=== PATIENT | male | born 1985 | race African-American/Black ===

== ENCOUNTER 2021-11-13 00:45 | Observation (INO) | payer OTHER ==
[2021-11-13] MEDS ORDERED: LACTATED RINGERS SOLUTION 1000 ML INFUS.BAG IV ONE (00:58)
[2021-11-13] MEDS ORDERED: morphine CARPU-JECT 2 MG/1 ML DISP.SYRIN IVPUSH ONE (00:58)
[2021-11-13] MEDS ORDERED: morphine SULFATE 4 MG/ML VIAL ONE (01:00)
[2021-11-13 02:09] LABS: BASO % 0.6 % (0-2.0); EOS % 1.6 % (0-4.5); HEMATOCRIT 40.9 % (35.4-49); HEMOGLOBIN 14.1 GM/dL (11.7-16.9); LYMPH % 26.3 % (8-40); MCH 29.6 pg (25.7-33.7); MCHC 34.5 g/dl (32.0-35.9); MEAN CELL VOLUME 85.8 fl (80-96); MEAN PLT VOLUME 8.7 fl (7.5-11.1); MONO % 15.4 % (3.8-10.2); NEUT % 56.1 % (42.8-82.8); PLATELET COUNT 213 10^3/uL (134-434); RBC 4.77 M/mm3 (4.00-5.60); RDW 13.6 % (11.9-15.9); WHITE BLOOD COUNT 6.8 K/mm3 (4.0-10.0)
[2021-11-13 02:26] LABS: ALBUMIN 3.7 g/dl (3.4-5.0); BLOOD UREA NITROGEN 12.4 mg/dL (7-18); CALCIUM 8.5 mg/dL (8.5-10.1)
[2021-11-13 02:31] LABS: BILIRUBIN,TOTAL 0.3 mg/dL (0.2-1); TOT PROT 7.3 g/dl (6.4-8.2)
[2021-11-13] MEDS ORDERED: ENOXAPARIN NA (PORCINE) 100 MG/1 ML DISP.SYRIN SQ ONE ×2 (03:00→03:20)
[2021-11-13] MEDS ORDERED: ENOXAPARIN NA (PORCINE) 100 MG/1 ML DISP.SYRIN SQ SCH ×2 (03:14→10:00)
[2021-11-13] MEDS ORDERED: T PO PRN (03:15)
[2021-11-13] MEDS ORDERED: ACETAMINOPHEN 1000 MG/100 ML BAG IVPB PRN (03:39)
[2021-11-13 03:41] LABS: INR 0.92 (0.83-1.09); PROTHROMBIN TIME (PATIENT) 10.6 SEC (9.7-13.0)
[2021-11-13 03:43] LABS: ACTIVATED PTT 30.8 SECONDS (25.2-36.5)
[2021-11-13 06:49] VITALS: BMI 28.0
[2021-11-13 10:21] VITALS: BP 131/77; PULSE 82; TEMP 98.5
[2021-11-13 11:15] LABS: MAGNESIUM 2.4 mg/dL (1.8-2.4)
[2021-11-13] MEDS ORDERED: DEXTROSE 5%-WATER - 50 ML IVPB ONE (13:14)
[2021-11-13] MEDS ORDERED: cefTRIAXone SODIUM 1 GM VIAL ONE (13:14)
[2021-11-13] MEDS ORDERED: AZITHROMYCIN 250 MG TABLET PO ONE (13:15)
[2021-11-13] MEDS ORDERED: CEFTRIAXONE 1 GM in DEXTROSE 5%-WATER - 50 ML IVPB ONE (13:15)
== END 2021-11-13 14:34 | disposition home or self-care (01) ==
LOC: EDBD → MERGE 00:45 → FER 00:45 → FM/S 03:15
PROVIDERS: ADMIT Hospitalist; ATTEND Nurse Practitioner Acute Care
PROC: 3E033NZ Introduction of Analgesics, Hypnotics, Sedatives into Peripheral Vein, Percutaneous Approach (ICD-10-PCS; principal; 2021-11-13)
PROC: 3E03329 Introduction of Other Anti-infective into Peripheral Vein, Percutaneous Approach (ICD-10-PCS; 2021-11-13)
PROC: 3E023GC Introduction of Other Therapeutic Substance into Muscle, Percutaneous Approach (ICD-10-PCS; 2021-11-13)
PROC: 3E0337Z Introduction of Electrolytic and Water Balance Substance into Peripheral Vein, Percutaneous Approach (ICD-10-PCS; 2021-11-13)
DX: J18.9 Pneumonia, unspecified organism (principal); F41.0 Panic disorder [episodic paroxysmal anxiety]
CPT/HCPCS: 36415; 71275-TC; 80053; 83735; 84484; 85025; 85379; 85610; 85730; 93005; 96365; 96372; 96375; 99285-25; C9803-CS; G0378; Q9967; U0003; U0005